=== PATIENT | male | born 1985 | race Hispanic/Latino ===

== ENCOUNTER 2021-11-25 16:07 | Emergency (ER) | payer BC, OTHER ==
[~2021-11-25] VITALS: Ht 177.8 cm; Wt 131.5 kg
[~2021-11-25 16:07] MED LIST: ASPI-1005 PO; ATOR20TA65 PO; FENO145T PO; LEVO50TA4 PO; LOSA1TAB42 PO
[2021-11-25 16:40] LABS: INFLUENZA TYPE A NEGATIVE FOR TYPE A (NEG); INFLUENZA TYPE B NEGATIVE FOR TYPE B (NEG)
[2021-11-25 16:54] LABS: BASOPHILS % (AUTO) 0.9 % (0.0-5.0); EOSINOPHILS % (AUTO) 1.9 % (0.0-8.0); HEMATOCRIT 45.5 % (42-54); LYMPHOCYTES % (AUTO) 32.1 % (21.0-51.0); MEAN CORPUSCULAR HEMOGLOBIN 29.3 pg (27.0-33.0); MEAN CORPUSCULAR HGB CONC 33.4 g/dL (32.0-36.0); MEAN CORPUSCULAR VOLUME 87.8 fL (79-99); MONOCYTES % (AUTO) 11.2 % (3.0-13.0); NEUTROPHILS % (AUTO) 53.6 % (40.0-77.0); PLATELET COUNT (AUTO) 328 K/uL (130-400); RED BLOOD CELL COUNT(AUTO) 5.18 MIL/uL (4.50-6.20); RED CELL DISTRIBUTION WIDTH 13.5 % (11.0-15.5); WHITE BLOOD COUNT (AUTO) 6.8 K/uL (4.8-10.8)
[2021-11-25 17:04] LABS: CREATININE 1.1 mg/dL (0.5-1.5); POTASSIUM 4.1 mmol/L (3.5-5.1)
[2021-11-25 17:09] LABS: ALBUMIN 4.2 g/dL (3.5-5.0); BILIRUBIN,TOTAL 0.2 mg/dL (0.2-1.0); TOTAL PROTEIN, SERUM 7.7 g/dL (6.0-8.3)
[2021-11-25] MEDS ORDERED: LORAZEPAM 1 MG TABLET PO ONE (19:30)
[2021-11-25] MEDS ORDERED: LORAZEPAM 1 MG TABLET ONE (19:41)
[2021-11-25] MEDS ORDERED: DEXT1TAB PO (20:15)
[2021-11-25 20:49] VITALS: BP 145/92
== END 2021-11-25 20:57 | disposition home or self-care (01) ==
LOC: EDH 16:07
DX: J06.9 Acute upper respiratory infection, unspecified (principal); R05.9 Cough, unspecified; E66.9 Obesity, unspecified; I10 Essential (primary) hypertension; E11.9 Type 2 diabetes mellitus without complications; K21.9 Gastro-esophageal reflux disease without esophagitis; E03.9 Hypothyroidism, unspecified; Z20.822 Contact with and (suspected) exposure to COVID-19; Z90.89 Acquired absence of other organs; Z79.899 Other long term (current) drug therapy
CPT/HCPCS: 36415; 71045; 80053; 83690; 84484; 85025; 87635; 87804 ×2; 93005; 99285; C9803